=== PATIENT | female | born 1955 | race Caucasian/White ===

== ENCOUNTER 2017-03-19 09:39 | Emergency (ER) | payer OTHER ==
--- NOTE | 2017-03-19 10:06 | UC ---
Hypertension HPI - HPI Summary HPI Summary: 61 FEMALE PRESENTS WITH COMPLAINS OF HIGH BLOOD PRESSURE 200/100 AND CHEST PAIN R > L. - History of Current Complaint Chief Complaint: UCGeneralIllness Stated Complaint: HIGH BLOOD PRESSURE Time Seen by Provider: 03/19/17 10:05 Hx Obtained From: Patient Onset/Duration: Sudden Onset Aggravating Factor(s): Exertion Alleviating Factor(s): Rest Associated Signs And Symptoms: Positive: Chest Pain - Risk Factors Cardiac Risk Factors: Hypertension, Smoking - Allergies/Home Medications Allergies/Adverse Reactions: Allergies Allergy/AdvReac Type Severity Reaction Status Date / Time Latex Allergy Rash Verified 03/19/17 11:07 Home Medications: Home Medications Multiple Vitamin [Multivitamins] 1 cap PO 03/19/17 [History] PMH/Surg Hx/FS Hx/Imm Hx Previously Healthy: Yes - Surgical History Surgical History: None - Social History Alcohol Use: Occasionally Substance Use Type: None Smoking Status (MU): Heavy Every Day Tobacco Smoker Type: Cigarettes Review of Systems Constitutional: Negative Skin: Negative Eyes: Negative ENT: Negative Respiratory: Negative Cardiovascular: Chest Pain Gastrointestinal: Negative Genitourinary: Negative Motor: Negative Neurovascular: Negative Musculoskeletal: Negative Neurological: Negative Psychological: Negative All Other Systems Reviewed And Are Negative: Yes Physical Exam Triage Information Reviewed: Yes Appearance: Ill-Appearing Vital Signs: Initial Vital Signs Temp 36.4 C 03/19/17 09:57 Pulse 88 03/19/17 09:57 Resp 18 03/19/17 09:57 BP 166/80 03/19/17 09:57 Pulse Ox 97 03/19/17 09:57 Eye Exam: Normal ENT Exam: Normal Dental Exam: Normal Neck exam: Normal Neck: Positive: 1 Respiratory Exam: Normal Cardiovascular Exam: Normal Abdominal Exam: Normal Musculoskeletal Exam: Normal Neurological Exam: Normal Psychological Exam: Normal Skin Exam: Normal Hypertension Course/Dx - Differential Dx/Diagnosis Provider Diagnoses: HYPERTENSION. CHEST PAIN Discharge - Discharge Plan Condition: Stable Disposition: [facility] Patient Education Materials: Hypertension (ED) Referrals: No Primary Care Phys,NOPCP [Primary Care Provider] - Additional Instructions:
[2017-03-19] MEDS ORDERED: Aspirin Low Dose CHEW TAB* 81 MG PO ONE (11:05)
[2017-03-19 11:15] VITALS: BP 172/83
[2017-03-20] MEDS ORDERED: Aspirin Low Dose CHEW TAB* 81 MG PO SCH (09:00)
== END 2017-03-19 11:16 | disposition short-term general hospital (02) ==
LOC: UCEAST 09:39
DX: I10 Essential (primary) hypertension (principal); Z91.040 Latex allergy status; R07.9 Chest pain, unspecified; F17.210 Nicotine dependence, cigarettes, uncomplicated
CPT/HCPCS: 93005; 99203; A9270-GY; G0463

== ENCOUNTER → 2017-03-19 11:37 | Emergency (ER) | payer OTHER ==
[~2017-03-19 11:37] MED LIST: Aspirin Low Dose CHEW TAB* 81 MG PO ONE; Ramipril CAP* 10 MG PO ONE; Ramipril CAP* 5 MG PO ONE
--- NOTE | 2017-03-19 15:35 | RAD ---
HISTORY: Chest pain COMPARISONS: None VIEWS: 4: Frontal dual-energy and lateral views of the chest. FINDINGS: CARDIOMEDIASTINAL SILHOUETTE: The cardiomediastinal silhouette is normal. JOSE: The jose are normal. PLEURA: The costophrenic angles are sharp. No pleural abnormalities are noted. LUNG PARENCHYMA: The lungs are clear. ABDOMEN: The upper abdomen is clear. There is no subphrenic gas. BONES AND SOFT TISSUES: No bone or soft tissue abnormalities are noted. OTHER: None. IMPRESSION: NO ACTIVE CARDIOPULMONARY DISEASE.
--- NOTE | 2017-03-19 15:37 | RAD ---
HISTORY: Right shoulder pain COMPARISONS: None VIEWS: 4, Frontal internal rotation, external rotation, outlet, and axillary views of the right shoulder FINDINGS: BONE DENSITY: Normal. BONES: There is no displaced fracture. JOINTS: There is no arthropathy. ALIGNMENT: There is no dislocation. SOFT TISSUES: Unremarkable. OTHER FINDINGS: None. IMPRESSION: NO ACUTE OSSEOUS INJURY. IF SYMPTOMS PERSIST, RECOMMEND REPEAT IMAGING.
[2017-03-19 15:56] LABS: Hematocrit 47 % (35-47); Hemoglobin 16.1 g/dl (12.0-16.0); Mean Corpuscular HGB Conc 35 g/dl (31-36); Mean Corpuscular Hemoglobin 33 pg (27-31); Mean Corpuscular Volume 97 fL (80-97); Mean Platelet Volume 8 um3 (7.4-10.4); Red Blood Count 4.82 10^6/ul (4.0-5.4); Red Cell Distribution Width 12 % (10.5-15); White Blood Count 9.7 10^3/ul (3.5-10.8)
[2017-03-19 16:13] LABS: Albumin 4.3 g/dL (3.2-5.2); BUN/Creatinine Ratio 15.3 (8-20); Calcium 9.7 mg/dL (8.6-10.3); EGFR African American 106.6 (>60); EGFR Non-African American 82.9 (>60); Globulin 2.8 g/dL (2-4); Potassium 3.8 mmol/L (3.5-5.0); Total Bilirubin 0.7 mg/dL (0.2-1.0); Total Protein 7.1 g/dL (6.4-8.9)
[2017-03-19 18:21] VITALS: BP 143/85
--- NOTE | 2017-03-19 18:28 | ED ---
Luz Velasco Edward, scribed for Braulio Grover MD on 03/19/17 at 1456 . Hypertension - HPI Summary HPI Summary: 61 y/o female presents to ED c/o sudden onset HTN spikes; she is at around 140 at baseline that went up to 200/120, 1x last night and 1x this morning. Pt also c/o chronic intermittent R shoulder pain starting this morning. The pain is a sharp pain rated 3/10 in severity that does not radiate. The pain may be aggravated with stress but is not aggravated or alleviated definitively by anything in particular. Denies diaphoresis, SOB. PMHx HTN, fibromyalgia (dx 4 years ago), type II DM, HLD, GERD. SHx none. FHx HTN and HLD, father from prostate cancer. Pt stopped taking HTN medicine for 2 years (Altase 10 mg). Occasional EtOH use. Smoker. The patient states she gets right shoulder pain for past year, the same location and feels it is consistent with her fibromyalgia pain. She has never at any time had chest pain. - History of Current Complaint Chief Complaint: EDHypertension Stated Complaint: SHOULDER PAIN COMING FROM CC Time Seen by Provider: 03/19/17 14:44 Hx Obtained From: Patient Onset/Duration: Started Hours Ago - 1x last night, 1x this morning Associated Signs & Symptoms: Pain - R shoulder pain - Risk Factors Cardiac Risk Factors: Hypertension, Smoking, Diabetes - Allergies/Home Medications Allergies/Adverse Reactions: Allergies Allergy/AdvReac Type Severity Reaction Status Date / Time Latex Allergy Rash Verified 03/19/17 11:07 PMH/Surg Hx/FS Hx/Imm Hx Previously Healthy: No Endocrine/Hematology History: Reports: Hx Diabetes - type 2 dm Cardiovascular History: Reports: Hx Hypertension GI History: Reports: Hx Ulcer - Surgical History Surgery Procedure, Year, and Place: None Infectious Disease History: Yes Infectious Disease History: Denies: Traveled Outside the [place] in Last 30 Days - Family History Known Family History: Positive: Hypertension, Other - Prostate cancer - Social History Occupation: Unemployed Lives: Alone Alcohol Use: Occasionally Hx Substance Use: No Substance Use Type: Reports: None Hx Tobacco Use: Yes Smoking Status (MU): Heavy Every Day Tobacco Smoker Type: Cigarettes Review of Systems Constitutional: Negative Negative: Skin Diaphoresis Eyes: Negative ENT: Negative Cardiovascular: Other - HTN Respiratory: Negative Negative: Shortness Of Breath Gastrointestinal: Negative Genitourinary: Negative Positive: Arthralgia - R shoulder pain Skin: Negative Neurological: Negative Psychological: Normal All Other Systems Reviewed And Are Negative: Yes Physical Exam Triage Information Reviewed: Yes Vital Signs On Initial Exam: Initial Vitals Temp Pulse Resp BP Pulse Ox 97.0 F 74 12 132/83 94 03/19/17 11:54 03/19/17 11:54 03/19/17 11:54 03/19/17 11:54 03/19/17 11:54 Vital Signs Reviewed: Yes Appearance: Positive: Well-Appearing, No Pain Distress, Well-Nourished Skin: Positive: Skin Color Reflects Adequate Perfusion Head/Face: Positive: Normal Head/Face Inspection Eyes: Positive: EOMI ENT: Positive: Normal ENT inspection Neck: Positive: Nontender Respiratory/Lung Sounds: Positive: Clear to Auscultation, Breath Sounds Present Cardiovascular: Positive: RRR. Negative: Murmur Abdomen Description: Positive: Nontender Musculoskeletal: Positive: Normal, Strength/ROM Intact. Negative: Edema Left, Edema Right Neurological: Positive: Sensory/Motor Intact, Alert, Oriented to Person Place, Time, CN Intact II-III Psychiatric: Positive: Normal - [place] Coma Scale Best Eye Response: 4 - Spontaneous Best Motor Response: 6 - Obeys Commands Best Verbal Response: 5 - Oriented Diagnostics - Vital Signs Vital Signs Temp Pulse Resp BP Pulse Ox 03/19/17 11:54 97.0 F 74 12 132/83 94 - Laboratory Lab Results: Lab Results 03/19/17 03/19/17 03/19/17 Range/Units 15:46 15:46 15:46 WBC 9.7 (3.5-10.8) 10^3/ul RBC 4.82 (4.0-5.4) 10^6/ul Hgb 16.1 H (12.0-16.0) g/dl Hct 47 (35-47) % MCV 97 (80-97) fL MCH 33 H (27-31) pg MCHC 35 (31-36) g/dl RDW 12 (10.5-15) % Plt Count 311 (150-450) 10^3/ul MPV 8 (7.4-10.4) um3 Neut % (Auto) 52.3 (38-83) % Lymph % (Auto) 35.3 (25-47) % [place] % (Auto) 8.3 (1-9) % Eos % (Auto) 3.1 (0-6) % Baso % (Auto) 1.0 (0-2) % Absolute Neuts (auto) 5.1 (1.5-7.7) 10^3/ul Absolute Lymphs (auto) 3.4 (1.0-4.8) 10^3/ul Absolute Monos (auto) 0.8 (0-0.8) 10^3/ul Absolute Eos (auto) 0.3 (0-0.6) 10^3/ul Absolute Basos (auto) 0.1 (0-0.2) 10^3/ul Absolute Nucleated RBC 0 10^3/ul Nucleated RBC % 0 Sodium 138 (133-145) mmol/L Potassium 3.8 (3.5-5.0) mmol/L Chloride 106 (101-111) mmol/L Carbon Dioxide 25 (22-32) mmol/L Anion Gap 7 (2-11) mmol/L BUN 11 (6-24) mg/dL Creatinine 0.72 (0.51-0.95) mg/dL Est GFR ( Amer) 106.6 (>60) Est GFR (Non-Af Amer) 82.9 (>60) BUN/Creatinine Ratio 15.3 (8-20) Glucose 205 H (70-100) mg/dL Lactic Acid 0.7 (0.5-2.0) mmol/L Calcium 9.7 (8.6-10.3) mg/dL Total Bilirubin 0.70 (0.2-1.0) mg/dL AST 19 (13-39) U/L ALT 30 (7-52) U/L Alkaline Phosphatase 97 (34-104) U/L Troponin I 0.00 (<0.04) ng/mL Total Protein 7.1 (6.4-8.9) g/dL Albumin 4.3 (3.2-5.2) g/dL Globulin 2.8 (2-4) g/dL Albumin/Globulin Ratio 1.5 (1-3) Result Diagrams: 03/19/17 15:46 03/19/17 15:46 Lab Statement: Any lab studies that have been ordered have been reviewed, and results considered in the medical decision making process. - Radiology R SHOULDER XR Xray Interpretation: No Acute Changes - NO ACUTE OSSEOUS INJURY. IF SYMPTOMS PERSIST, RECOMMEND REPEAT IMAGING. Radiology Interpretation Completed By: Radiologist CHEST XR Xray Interpretation: No Acute Changes - NO ACTIVE CARDIOPULMONARY DISEASE. Radiology Interpretation Completed By: Radiologist - EKG 1 EKG Interpretation: 15:19 - SINUS RHYTHM @ 77 BPM. NO STEMI 2 EKG Rhythm: Sinus Rhythm - @ 75 BPM EKG Interpretation: 17:26 - NO STEMI EKG Comparison: No Significant Change - From previous 2 EKG's today Re-Evaluation - Re-Evaluation First Eval Change: Improved - the patient feels fine. She would like to go home and be started on altace again. Hypertension Course/Dx - Course Course Of Treatment: 61 yr old female who smokes, has DM, and HTN and has not taken her bp meds the past two years. She used to be on Altace but felt she could control it by diet and exercise. She feels fine; She has never had Chest pain at all today. She has had right shoulder pain, localized to that shoulder at least a dozen times in the past per the patient, and she feels it is her fibromyalgia. Patient will be restarted on Altace at 5 mg dose. FU with PMD on Sunday this week at her already made appointment. - Diagnoses Provider Diagnoses: Hypertension, Shoulder pain, right Discharge - Discharge Plan Condition: Good Disposition: HOME Prescriptions: Ramipril CAP* [Altace CAP*] 5 mg PO DAILY #10 cap Patient Education Materials: Trigger Point Pain (ED), Fibromyalgia (ED), Hypertension (ED) Additional Instructions: Dr. Bob Peguero [address] [place] [address] After Hours Please follow up on this Sunday at your appointment. The documentation as recorded by the Luz talbot Edward accurately reflects the service I personally performed and the decisions made by , Braulio Grover MD.
== END | disposition home or self-care (01) ==
LOC: ED 11:37
DX: I10 Essential (primary) hypertension (principal); M25.511 Pain in right shoulder; F17.210 Nicotine dependence, cigarettes, uncomplicated
CPT/HCPCS: 36415; 71020; 80053; 83605; 84484; 85025; 93005; 99282; A9270-GY

== ENCOUNTER 2019-01-17 14:07 | Emergency (ER) | payer OTHER ==
[2019-01-17 14:20] VITALS: BP 148/83
--- NOTE | 2019-01-17 16:22 | UC ---
Throat Pain/Nasal Joel HPI - HPI Summary HPI Summary: 63 y/o female presents to the urgent care c/o uri symptoms for the past 3 weeks. Pt reports sinus congestion w/ yellowish nasal discharge and moderate PND worsening for the past 2 days. Pt thinks symptoms are coming down to her chest since last night she couldn't sleep due to cough. She has been taken OTC medication w/o any improvement. Sinus pain is 5/10. Pt denies fever, SOB, chest pain,abdominal pain, N/V/D. - History of Current Complaint Chief Complaint: UCRespiratory Stated Complaint: COUGH Time Seen by Provider: 01/17/19 16:04 Hx Obtained From: Patient Onset/Duration: Gradual Onset, Lasting Weeks - 3 weeks, Still Present, Worse Since - 2 days Severity: Moderate Pain Intensity: 5 Pain Scale Used: 0-10 Numeric Cough: Nonproductive Associated Signs & Symptoms: Positive: Sinus Discomfort, Nasal Discharge - yellowish. Negative: Wheezing, Fever - Epiglottits Risk Factors Epiglottis Risk Factors: Negative - Allergies/Home Medications Allergies/Adverse Reactions: Allergies Allergy/AdvReac Type Severity Reaction Status Date / Time latex Allergy Rash Verified 01/17/19 14:20 PMH/Surg Hx/FS Hx/Imm Hx Previously Healthy: Yes Endocrine History: Diabetes Cardiovascular History: Hypertension Respiratory History: Asthma - Surgical History Surgical History: None Surgery Procedure, Year, and Place: None - Family History Known Family History: Positive: Hypertension, Other - Prostate cancer - Social History Occupation: Employed Full-time Lives: With Family Alcohol Use: Occasionally Substance Use Type: None Smoking Status (MU): Heavy Every Day Tobacco Smoker Type: Cigarettes Review of Systems All Other Systems Reviewed And Are Negative: Yes Constitutional: Positive: Negative Skin: Positive: Negative Eyes: Positive: Negative ENT: Positive: Ear Ache - B/L ear pressure, Nasal Discharge - yellowish, Sinus Congestion, Sinus Pain/Tenderness, Other - PND yellowish Respiratory: Positive: Cough - dry Cardiovascular: Positive: Negative Gastrointestinal: Positive: Negative Genitourinary: Positive: Negative Motor: Positive: Negative Neurovascular: Positive: Negative Musculoskeletal: Positive: Negative Neurological: Positive: Headache Psychological: Positive: Negative Is Patient Immunocompromised?: No Physical Exam - Summary Physical Exam Summary: Vitals: reviewed General: Well developed, well-nourished female patient with NAD. Head and face: Normocephalic and atraumatic, Positive tenderness over the frontal and maxillary sinuses.. Eyes: PERRLA, EOMI x 2. Normal conjunctiva. No eye discharge. ENT: Ears and TM with normal limits. Nose: edematous and erythematous nasal mucosa with with yellowish discharge and erythematous mucosa. Pharynx with erythema, no exudate. yellowish PND Neck: Supple, no JVD, no carotid bruits and no lymphadenopathy. Lungs: clear, no rales, no rhonchi, no wheezes. CVS: RRR, S1 and S2 present no murmurs or gallops appreciated. Abdomen: soft nontender with positive bowel sounds. Extremities: no edema noted. Neuro: WNL. Skin: warm and dry Triage Information Reviewed: Yes Vital Signs: Initial Vital Signs Temp 98 F 01/17/19 14:17 Pulse 100 01/17/19 14:17 Resp 20 01/17/19 14:17 BP 148/83 01/17/19 14:17 Pulse Ox 98 01/17/19 14:17 Throat Pain/Nasal Course/Dx - Course Course Of Treatment: 63 y/o female presents to the urgent care c/o uri symptoms for the past 3 weeks. Pt reports sinus congestion w/ yellowish nasal discharge and moderate PND worsening for the past 2 days. Pt thinks symptoms are coming down to her chest since last night she couldn't sleep due to cough. She has been taken OTC medication w/o any improvement. Sinus pain is 5/10. Pt denies fever, SOB, chest pain,abdominal pain, N/V/D. Hx obtained, Pt w/ acute bacterial sinusitis on examination. Pt with 3 weeks of symptoms getting worse. Pt Rx Amoxicillin PO and flonase nasal spray. Tessalon PO for cough. Pt requested Albuterol inhaler refill which was giv Discharge instructions explained to Pt. Advised to Return to the clinic or PCP if symptoms do not improve. Your BP is elevated today. please decrease salt in your diet, monitor BP and if it continues to be elevated please f/u with your PCP for further management. Pt understood and agreed with plan of care. - Differential Dx/Diagnosis Differential Diagnosis/HQI/PQRI: Influenza, Laryngitis, Mononucleosis, Pharyngitis, Sinusitis, Tonsillitis, URI Provider Diagnosis: Acute bacterial sinusitis, Cough, Uncontrolled hypertension Discharge - Sign-Out/Discharge Documenting (check all that apply): Patient Departure - d/C home All imaging exams completed and their final reports reviewed: No Studies - Discharge Plan Condition: Stable Disposition: HOME Prescriptions: Albuterol HFA INHALER* [Ventolin HFA Inhaler*] 1 - 2 puff INH Q6H PRN #1 mdi PRN Reason: cough/wheezing Amoxicillin PO (*) [Amoxicillin 875 MG (*)] 875 mg PO BID #20 tab Benzonatate CAP* [Tessalon 100 MG CAP*] 100 mg PO TID PRN #21 cap PRN Reason: Cough Fluticasone NASAL SPRAY 50MCG* [Flonase NASAL SPRAY 50MCG*] 2 spray BOTH NARES DAILY #1 btl Patient Education Materials: Sinusitis (ED) Referrals: [facility] [Outside] - 3 Days Additional Instructions: 1- Please increase fluid intake and rest. take full course of antibiotics to avoid resistance. Take yogurts w/ probiotics or Culturelle to protect your GI system 2-Use Flonase as directed to help drain fluid. Also buy saline drops to clear sinuses 3-Please Take Tessalon tabs PO to alleviate cough 4-Please f/u w/ your PCP in 3 days if symptoms do not improve for further management and treatment 5- Your BP is elevated today. please decrease salt in your diet, monitor BP and if it continues to be elevated please f/u with your PCP for further management. - Billing Disposition and Condition Condition: STABLE Disposition: Home - Attestation Statements Provider Attestation: I was available for consult. This patient was seen by the BALTA. The patient was not presented to, seen by, or examined by me. -Mikal
== END 2019-01-17 16:55 | disposition home or self-care (01) ==
LOC: UCEAST 14:07
DX: J01.90 Acute sinusitis, unspecified (principal); B96.89 Other specified bacterial agents as the cause of diseases classified elsewhere; R05 Cough; I10 Essential (primary) hypertension; E11.9 Type 2 diabetes mellitus without complications; F17.210 Nicotine dependence, cigarettes, uncomplicated
CPT/HCPCS: 99212; G0463